=== PATIENT | female | born 1930 | race Caucasian/White ===

== ENCOUNTER 2018-11-04 13:33 | Emergency (ER) | payer OTHER ==
[2018-11-04] MEDS: IBUPROFEN 600 MG TAB PO (14:59)
== END 2018-11-04 15:52 | disposition home or self-care (01) ==
LOC: E/R 13:33
DX: M19.071 Primary osteoarthritis, right ankle and foot (principal); M19.072 Primary osteoarthritis, left ankle and foot; M17.0 Bilateral primary osteoarthritis of knee; R20.2 Paresthesia of skin
CPT/HCPCS: 99283